=== PATIENT | male | born 1995 ===

== ENCOUNTER → 2022-06-24 | Outpatient (REF) | payer BC | LOC: M WUC 22:16 | PROVIDERS: ATTEND Physician Assistant | DX: R30.0 Dysuria (principal) ==

== ENCOUNTER → 2022-07-14 | Outpatient (REF) | payer BC ==
[2022-07-14 12:23] LABS: HIV 1&2 SCREEN CENTAUR NEGATIVE (NEGATIVE)
== END ==
LOC: M LAB REF 11:22
PROVIDERS: ATTEND Internal Medicine
DX: N34.3 Urethral syndrome, unspecified (principal); Z13.89 Encounter for screening for other disorder